=== PATIENT | female | born 1990 | race Caucasian/White ===

== ENCOUNTER 2017-11-04 21:45 | Emergency (ER) | payer MEDICAID, SELFPAY ==
[2017-11-04 21:50] VITALS: BP 140/90; PULSE 75; RESP 18; TEMP 36.1; O2SAT 99; BMI 30.4
[2017-11-04 21:58] VITALS: BP 140/90; PULSE 75; RESP 18; TEMP 36.1; O2SAT 99; BMI 30.4
--- NOTE | 2017-11-04 21:59 | PC.NURSE ---
Pt states R earlobe swelling and pain 5/10 x1 week has used warm compresses with no relief. States has had her earrings out for about a year and had similar episode last year used warm compresses, earlobe drained and pain resolved. R earlobe appears swollen with abscess.
[2017-11-04] MEDS: DOXYCYCLINE HYCLATE 100 MG TABLET PO (22:35)
[2017-11-04 22:57] VITALS: BP 112/69; PULSE 65; O2SAT 100
[2017-11-04 23:03] VITALS: BP 118/71; PULSE 72; RESP 18; O2SAT 99
--- NOTE | 2017-11-04 23:57 | ED_ITS ---
HPI - Ear Problem General Chief complaint: Ear Stated complaint: RT EARLOBE PAIN Time Seen by Provider: 11/04/17 21:47 Source: patient and family Mode of arrival: ambulatory Limitations: no limitations History of Present Illness HPI Narrative: Patient presents to the emergency department with a chief complaint of right earlobe pain for the past week. She complains of swelling, redness and pain and tried squeezing it, thinking it was another abscess but did not get any pus. She has some tenderness both in front of and behind the year and a mild headache. She denies fever or shaking chills. She has not worn earrings in many months. She had a similar episode months ago and had an abscess drained MD Complaint: ear pain Location: right ear Duration: constant Severity: mild Relieving factors: nothing Exacerbating factors: nothing Treatment prior to arrival: none Related Data Previous Rx's Medication Instructions Recorded prednisone 20 mg PO BID #10 tab 04/11/17 doxycycline hyclate 100 mg PO BID #20 tab 11/04/17 Allergies Allergy/AdvReac Type Severity Reaction Status Date / Time CILLINS Allergy Intermediate Uncoded 08/19/17 12:49 Review of Systems Review of Systems All systems reviewed & are unremarkable except as noted in HPI and below Constitutional Denies chills, Denies fever(s), Denies lethargy and Denies weakness Eyes Denies change in vision, Denies eye discharge, Denies irritation and Denies loss of vision ENT Ears, Nose, Mouth, and Throat: Denies change in voice, Denies neck pain and Denies sore throat Comments: Right ear pain Cardiovascular Denies chest pain, Denies irregular heart rhythm, Denies lightheadedness, Denies palpitations, Denies dyspnea, Denies dyspnea on exertion and Denies orthopnea Respiratory Denies cough, Denies dyspnea, Denies dyspnea on exertion and Denies wheezing Gastrointestinal Gastrointestinal: Denies abdominal pain, Denies change in bowel habits, Denies diarrhea, Denies nausea and Denies vomiting Genitourinary Denies hematuria, Denies flank pain, Denies urinary incontinence and Denies urinary urgency Musculoskeletal Denies neck pain Integumentary/Breasts Denies pruritus, Denies erythema, Denies rash and Denies wounds Neurologic Denies confusion, Denies loss of vision and Denies weakness Psychiatric Denies anxiety, Denies confusion, Denies depression, Denies homicidal ideation and Denies suicidal ideation Endocrine Denies palpitations Hematologic/Lymphatic Denies easy bruising Allergic/Immunologic Denies wheezing PFSH Social History Smoking Status: Former smoker Exam Narrative Exam Narrative: Pleasant 27-year-old female in no obvious distress Initial Vital Signs Initial Vital Signs: Vital Signs Temperature 97 F L 11/04/17 21:50 Pulse Rate 75 11/04/17 21:50 Respiratory Rate 18 11/04/17 21:50 Blood Pressure 140/90 H 11/04/17 21:50 Pulse Oximetry 99 11/04/17 21:50 Const General: cooperative and well developed Nutritional Appearance: well nourished Orientation: alert, awake, oriented x3 and not confused HENMT Ears: TM normal on the right, EAC's normal, periauricular adenopathy and other ( R earlobe red, swollen, tender. No fluctuance, no induration) Nose: external nose normal Mouth: oral mucosae normal Resp Effort & Inspection: normal respiratory effort, able to speak in complete sentences, no respiratory distress and no use of accessory muscles Auscultation: clear to auscultation bilaterally, no rales, no rhonchi and no wheezes GI Inspection: non-distended Palpation: soft, no hepatosplenomegaly, No guarding, No pulsatile mass and No tender Auscultation: normal bowel sounds Neuro General: alert, oriented x3, gait normal and no focal motor deficits Speech: speech normal Extrem General: full ROM, no clubbing, cyanosis or edema, no pedal edema and no calf tenderness Course Orders Ordered: Discontinued Medications Doxycycline Hyclate (Vibramycin) 100 mg PO NOW ONE Stop: 11/04/17 22:31 Last Admin: 11/04/17 22:35 Dose: 100 mg Vital Signs - 8 hr 11/04/17 21:50 11/04/17 21:58 11/04/17 22:57 Temperature 97 F L 97 F L Pulse Rate 75 75 65 Respiratory Rate 18 18 Blood Pressure 140/90 H 140/90 H Blood Pressure [Right Arm] 112/69 Pulse Oximetry 99 99 100 11/04/17 23:03 Temperature Pulse Rate 72 Respiratory Rate 18 Blood Pressure 118/71 Blood Pressure [Right Arm] Pulse Oximetry 99 Medical Decision Making MDM Narrative Medical decision making narrative: There is no fluctuance or induration, nor ? saleh ?. Patient refuses attempt at incision and drainage at this point time, this is reasonable to me. She will continue warm compresses and add antibiotics Discharge Plan Departure Patient Disposition: Home, Self-Care Clinical Impression: Abscess of earlobe Discharge Date/Time: 11/04/17 23:04 Interventions: ED Discharge Assessment Last Done: 11/04/17 23:03 Instructions: DI for Skin Abscess Activity Restrictions/Additional Instructions: *You have been diagnosed with [ right earlobe abscess ] *What to do: *Take medications as directed, her prescription has been electronically transmitted to [facility] and [place] at your request *Follow up with your primary care provider in 2-3 days *Return to ER if you should have ny new, worsening or concerning symptoms Prescriptions: New doxycycline hyclate 100 mg tablet 100 mg PO BID Qty: 20 RF: 0 No Action prednisone 20 MG tablet 20 mg PO BID Qty: 10 RF: 0
== END 2017-11-04 23:04 | disposition home or self-care (01) ==
PROVIDERS: Emergency Provider Emergency Medicine
DX: H60.01 Abscess of right external ear (principal)
CPT/HCPCS: 99282

== ENCOUNTER 2018-05-08 16:59 | Emergency (ER) | payer MEDICAID, SELFPAY ==
[2018-05-08 17:05] VITALS: BP 141/90; PULSE 99; RESP 19; TEMP 36.9; O2SAT 99; BMI 32.2
[2018-05-08 17:54] LABS: Influenza A and B by PCR Rapid Negative (Negative)
--- NOTE | 2018-05-08 18:07 | ED_ITS ---
HPI - URI/Sore Throat <Ashlyn Martins PA-C - Last Filed: 05/08/18 21:57> General Chief Complaint: Upper Respiratory Symptoms Stated Complaint: Cough and moucus for about a week Time Seen by Provider: 05/08/18 17:14 Source: patient Mode of arrival: ambulatory Limitations: no limitations History of Present Illness HPI Narrative: This 28-year-old female comes in due to 8 day history of respiratory symptoms. She traveled to [place] just prior to onset and thought this was due to the weather change, but now has been persistently ill. She states that this started with cough and some nasal congestion, and she has continued to have worsening cough, now with green and yellow sputum, last couple of days with a little bit of blood tinge in the sputum at times. She states that she has been coughing hard, and this can cause soreness in her chest , sometimes sore with breathing or cough. She states that she coughs so hard at times it hurts her low back and her legs can feel numb for a minute (she has a history of lumbar herniated disc, no new injury). She states that she does not feel short of breath or have wheeze. She had fever of 100 at home a couple of days ago, none today. She states that she is starting to feel achy. She states her throat is scratchy and sore from coughing, but not a severe sore throat. She denies earache, denies sinus pain, rash or other new complaints on exam aside from worsening fatigue. She denies possibility of , has had tubal ligation Related Data Previous Rx's Medication Instructions Recorded prednisone 20 mg PO BID #10 tab 04/11/17 doxycycline hyclate 100 mg PO BID #20 tab 11/04/17 codeine-guaifenesin 5 ml PO Q4H PRN #120 ml 05/08/18 Allergies Allergy/AdvReac Type Severity Reaction Status Date / Time CILLINS Allergy Intermediate Uncoded 08/19/17 12:49 Review of Systems <Ashlyn Martins PA-C - Last Filed: 05/08/18 21:57> Review of Systems All systems reviewed & are unremarkable except as noted in HPI and below Exam <RAJENDRA Leavitt Last Filed: 05/08/18 21:57> Narrative Exam Narrative: GENERAL APPEARANCE: Patient sitting comfortably, in no distress. HEAD: No sinus TTP. EYES: PERRL, EOMI. EARS: Normal auditory canals, TMS intact, scarred ORAL CAVITY: Normal oropharynx. THROAT: Mild erythema, no exudate, PND noted NECK/THYROID: Neck supple, full range of motion, few small anterior cervical nodes LUNGS: Clear to auscultation bilaterally, occasional wet cough on exam HEART: RRR without murmur, nl S1, S2, no S3 or S4. DERMATOLOGIC: No exanthem Initial Vital Signs Initial Vital Signs: Vital Signs Temperature 98.4 F 05/08/18 17:05 Pulse Rate 99 H 05/08/18 17:05 Respiratory Rate 19 05/08/18 17:05 Blood Pressure 141/90 H 05/08/18 17:05 Pulse Oximetry 99 05/08/18 17:05 <Eduardo Galindo DO - Last Filed: 05/09/18 04:28> Initial Vital Signs Initial Vital Signs: Vital Signs Temperature 98.4 F 05/08/18 17:05 Pulse Rate 99 H 05/08/18 17:05 Respiratory Rate 19 05/08/18 17:05 Blood Pressure 141/90 H 05/08/18 17:05 Pulse Oximetry 99 05/08/18 17:05 Course <Ashlyn Martins PA-C - Last Filed: 05/08/18 21:57> Orders Ordered: Discontinued Medications Ibuprofen (Advil) 800 mg PO NOW ONE Stop: 05/08/18 18:25 Last Admin: 05/08/18 18:30 Dose: 800 mg Vital Signs - 8 hr 05/08/18 17:05 05/08/18 18:43 05/08/18 18:45 Temperature 98.4 F 98.0 F Pulse Rate 99 H 79 Respiratory Rate 19 18 Blood Pressure 141/90 H Blood Pressure [Left Arm] 135/88 Pulse Oximetry 99 100 05/08/18 19:44 Temperature Pulse Rate 81 Respiratory Rate 18 Blood Pressure 131/80 Blood Pressure [Left Arm] Pulse Oximetry 99 <Eduardo Galindo DO - Last Filed: 05/09/18 04:28> Orders Ordered: Discontinued Medications Ibuprofen (Advil) 800 mg PO NOW ONE Stop: 05/08/18 18:25 Last Admin: 05/08/18 18:30 Dose: 800 mg Vital Signs - 8 hr 05/08/18 17:05 05/08/18 18:43 05/08/18 18:45 Temperature 98.4 F 98.0 F Pulse Rate 99 H 79 Respiratory Rate 19 18 Blood Pressure 141/90 H Blood Pressure [Left Arm] 135/88 Pulse Oximetry 99 100 05/08/18 19:44 Temperature Pulse Rate 81 Respiratory Rate 18 Blood Pressure 131/80 Blood Pressure [Left Arm] Pulse Oximetry 99 MDM - URI/Sore Throat <Ashlyn Martins PA-C - Last Filed: 05/08/18 21:57> Lab Data Lab Results 05/08/18 Range/Units 17:10 Influenza A & B (PCR) Negative (Negative) <Eduardo Galindo DO - Last Filed: 05/09/18 04:28> Lab Data Lab Results 05/08/18 Range/Units 17:10 Influenza A & B (PCR) Negative (Negative) Discharge Plan Departure Patient Disposition: Home Clinical Impression: URI (upper respiratory infection) Discharge Date/Time: 05/08/18 19:44 Interventions: ED Discharge Assessment Last Done: 05/08/18 19:44 Instructions: DI for Viral Upper Respiratory Infection -- Adult Activity Restrictions/Additional Instructions: Please return as we talked about if you have any acutely worsening symptoms. Otherwise, please continue ibuprofen, and you can also take the prescription cough syrup as needed to help thin the mucous and, cough (do not drive as it may make you sleepy). These symptoms are most likely caused by a virus and can take a couple of weeks to get better, but please see your PCP if you are not improving over the next week. Your test for flu and your chest x-ray for pneumonia were normal today. Prescriptions: New codeine-guaifenesin 10-100 mg/5 mL liquid 5 ml PO Q4H PRN (Reason: cough) Qty: 120 RF: 0 No Action prednisone 20 MG tablet 20 mg PO BID Qty: 10 RF: 0 doxycycline hyclate 100 mg tablet 100 mg PO BID Qty: 20 RF: 0 Referrals: Chris Carballo [Non-Staff] - <Eduardo Galindo DO - Last Filed: 05/09/18 04:28> Sign Out Provider Sign Out Attestation: I was immediately available in the department for consultation. Documentation has been reviewed. I agree with assessment and plan.
--- NOTE | 2018-05-08 18:23 | DI.RAD.S_ITS ---
PROCEDURE: XR CHEST 2V INDICATIONS: cough with purulent sputum, blood tinge TECHNIQUE: 2 views of the chest were acquired. COMPARISON: None. FINDINGS: Surgical changes and devices: None. Lungs and pleura: No pleural effusions or pneumothorax. Lungs are clear. Mediastinum: Mediastinal contours are normal. Heart size is normal. Bones and chest wall: No suspicious bony abnormalities. Soft tissues appear unremarkable. IMPRESSION: Normal for age, source of current symptoms is not seen. Dictated by: Manny Valentino M.D. on 05/08/2018 at 18:43 Approved by: Manny Valentino M.D. on 05/08/2018 at 18:44
[2018-05-08] MEDS: IBUPROFEN 400 MG TABLET 800 MG PO (18:30)
[2018-05-08 18:43] VITALS: BP 135/88; PULSE 79; RESP 18; O2SAT 100
[2018-05-08 18:45] VITALS: TEMP 36.7
[2018-05-08 19:44] VITALS: BP 131/80; PULSE 81; RESP 18; O2SAT 99
== END 2018-05-08 19:44 | disposition home or self-care (01) ==
PROVIDERS: Emergency Medicine; Emergency Provider Internal Medicine
DX: J06.9 Acute upper respiratory infection, unspecified (principal)
CPT/HCPCS: 71046; 87400; 99283; 99284

== ENCOUNTER 2020-01-06 20:37 | Emergency (ER) | payer OTHER, MEDICAID, SELFPAY ==
[2020-01-06 20:40] VITALS: BP 133/91; PULSE 80; RESP 18; TEMP 36.6; O2SAT 98; BMI 33.2
--- NOTE | 2020-01-06 21:12 | PC.NURSE ---
This [employer]PERATING ENGINEER assisted pt with changing into safety scrubs. Pt states that she has been through this process before and is aware of what is going to happen. is at bedside.
--- NOTE | 2020-01-06 21:32 | PC.NURSE ---
Steffanie Lehman on Pt 1:1 at 2130. Pt is calm and lying on gurney, Pt spouse is at bedside
[2020-01-06 21:33] LABS: Add Manual Diff / Slide Review NO; Basophils Absolute Auto 100 /uL (0-100); Basophils Percent Auto 0.6 % (0-2); Eosinophils Absolute Auto 100 /uL (0-450); Eosinophils Percent Auto 0.6 % (2-4); Hematocrit 42.8 % (36-46); Hemoglobin 13.9 g/dL (12.0-16.0); Lymphocytes Absolute Auto 1000 /uL (1100-4500); Lymphocytes Percent Auto 10.2 % (25-40); Mean Corpuscular HGB Conc 32.6 % (30-36); Mean Corpuscular Hemoglobin 29.1 PG (26-34); Mean Corpuscular Volume 89.3 fL (80-100); Monocytes Absolute Auto 700 /uL (0-900); Monocytes Percent Auto 6.8 % (3-14); Neutrophils Absolute Auto 8100 /uL (1500-7000); Neutrophils Percent Auto 81.8 % (50-75); Platelet Count 294 X10^3/uL (150-400); Red Blood Cell Count 4.79 X10^6/uL (4.0-5.2); Red Cell Distribution Width 13.7 % (11.6-14.8)
[2020-01-06 21:40] LABS: Alanine Aminotransferase 24 IU/L (<35); Albumin 4.6 g/dL (3.5-5.0); Albumin Globulin Ratio 1.2 (1.0-2.8); Alkaline Phosphatase 70 U/L (38-126); Aspartate Aminotransferase 25 IU/L (14-36); Bilirubin Total 1.1 mg/dL (0.2-1.3); Blood Urea Nitrogen 11 mg/dL (7-17); Calcium 9.3 mg/dL (8.4-10.2); Carbon Dioxide 26 mmol/L (22-32); Chloride 104 mmol/L (98-107); Estimated Glomerular Filt Rate > 60.0 mL/min (>60); Globulin 3.7 g/dL (1.7-4.1); Glucose 131 mg/dL (70-100); HEMOLYSIS < 15 (0-50); Lipase 26 U/L (23-300); Potassium 3.5 mmol/L (3.4-5.1); Sodium 138 mmol/L (137-145); Total Protein 8.3 g/dL (6.3-8.2)
--- NOTE | 2020-01-06 21:46 | PC.NURSE ---
Nurse collecting Covid swab, Pt is calm and cooperative
[2020-01-06 21:54] LABS: UR Morphine/Opiate cutoff 300 Negative (Negative); Ur Creatinine 100 (Normal); Ur Specific Gravity > 1.030 (Normal); Urine Amphetamines Negative (Negative); Urine Cocaine Negative (Negative); Urine MDMA Negative (Negative); Urine Methamphetamines Negative (Negative); Urine Phencyclidine Negative (Negative); Urine Tetrahydrocannabinol Positive (Negative); Urine pH 5.5 (Normal)
[2020-01-06 21:55] LABS: Urine Barbiturates Negative (Negative); Urine Benzodiazepines Negative (Negative); Urine Methadone Negative (Negative); Urine Oxycodone Negative (Negative); Urine Tricyclic Antidepressant Negative (Negative)
[2020-01-06 22:04] LABS: Acetaminophen < 10 ug/mL (10-30); Ethanol (ETOH) < 10 mg/dL; Salicylate < 1.0 mg/dL (<20)
--- NOTE | 2020-01-06 22:12 | PC.NURSE ---
Visitor in room with patient. Patient resting comfortably in bed. Does mention headache, requests tylenol. MD informed.
--- NOTE | 2020-01-06 22:17 | PC.NURSE ---
Dr is in the Rm speaking with the Pt, spouse is at bedside with Pt consent
[2020-01-06 22:21] LABS: Thyroid Stimulating Hormone 1.05 uIU/mL (0.47-4.68)
[2020-01-06] MEDS: ACETAMINOPHEN 325 MG TABLET 650 MG PO (22:23)
--- NOTE | 2020-01-06 22:23 | ED_ITS ---
HPI - Psych <Homero Esquivel DO - Last Filed: 01/07/20 19:22> General Chief Complaint: Psychiatric Symptoms Stated Complaint: mental health issues Time Seen by Provider: 01/06/20 20:52 Source: patient Mode of arrival: Ambulatory Limitations: no limitations History of Present Illness HPI Narrative: Patient is a 29-year-old female. Has a prior diagnosis of PTSD and bipolar disorder. Does see a mental health provider with the [facility]. States she is taking her prescribed medications as directed. Has had suicidal thoughts in the past. Has also had suicide attempts/gestures in the past. She has tried to overdose on medications and also tried to crash her car and also tried to cut herself. She also has had inpatient hospital stays in the past with the last reported inpatient stay approximately 2 years ago for suicidal ideation. She states that the symptoms that brought her in today started about 3 weeks ago when for an unexplained reason she ?ran away from home ?she states she was gone for several days. She states she ran away in order to try to hurt herself however a friend stopped her. Since that time she has had increasingly pervasive thoughts of killing herself until the point of the last 2 days when they have been constant thoughts. She states that her plan would be to wait until her goes to work and then going crash her car. She has not attempted to hurt herself in the past 3 weeks. Denies any alcohol in the past 24 hours. Smoked marijuana today prior to coming to the ER but no other drugs. She is here today voluntarily. She states that she did talk with her about the thoughts that she was having and after discussion with the she was convinced to come to the emergency department. She is here seeking voluntary admission to the hospital for her current mental health issues. Related Data Home Medications Medication Instructions Recorded Confirmed aripiprazole 10 mg PO DAILY 01/06/20 01/06/20 lamotrigine 50 mg PO DAILY 01/06/20 01/06/20 naproxen 500 mg PO BID PRN 01/06/20 01/06/20 trazodone 100 mg PO QPM 01/06/20 01/06/20 Allergies Allergy/AdvReac Type Severity Reaction Status Date / Time Penicillins Allergy Verified 01/06/20 20:40 Review of Systems <DO Charleen De Dios Last Filed: 01/07/20 19:22> Constitutional Constitutional: Denies fever(s) and Reports headache(s) ENT Ears, Nose, Mouth, and Throat: Reports headache(s) Cardiovascular Cardiovascular: Denies chest pain and Denies dyspnea Respiratory Respiratory: Denies dyspnea Gastrointestinal Gastrointestinal: Denies abdominal pain, Denies change in bowel habits and Denies nausea Genitourinary Genitourinary: Denies dysuria Genitourinary: Denies dysuria Musculoskeletal Musculoskeletal: Denies arthralgias and Denies myalgias Integumentary/Breasts Skin/Breast: Denies rash Neurologic Neurologic: Denies confusion and Reports headache(s) Psychiatric Psychiatric: Denies anxiety, Denies confusion, Reports depression, Reports hopelessness, Denies paranoia, Denies homicidal ideation and Reports suicidal ideation Hematologic/Lymphatic Hematologic/Lymphatic: Denies easy bleeding and Denies easy bruising Allergic/Immunologic Allergic/Immunologic: Denies urticaria Patient History <Homero Esquivel DO - Last Filed: 01/07/20 19:22> Medical History Bipolar disorder (Acute) Lumbar herniated disc (Chronic) PTSD (post-traumatic stress disorder) (Acute) Surgical History History of (Resolved) History of mandibular surgery (Resolved) History of tubal ligation (Resolved) Social History Smoking Status: Current every day smoker Smoking Status: Current every day smoker Substance Use Type: marijuana Exam <Homero Esquivel DO - Last Filed: 01/07/20 19:22> Initial Vital Signs Initial Vital Signs: Vital Signs Temperature 97.9 F 01/06/20 20:40 Pulse Rate 80 01/06/20 20:40 Respiratory Rate 18 01/06/20 20:40 Blood Pressure 133/91 H 01/06/20 20:40 Pulse Oximetry 98 01/06/20 20:40 Const General: cooperative and comfortable Limitations: mental status not altered [facility] Head: normal to inspection and normocephalic Ears: hearing grossly normal bilaterally Resp Effort & Inspection: normal respiratory effort Auscultation: clear to auscultation bilaterally Cardio Rate: regular rate Rhythm: regular rhythm GI Inspection: non-distended Skin Lesions: no lesions Rashes: no rashes Neuro General: patient alert, patient awake and patient oriented x3 Cognition: normal cognition Speech: speech normal Extrem General: normal to inspection and capillary refill normal Psych Appearance: grossly normal and well kempt Mental Status: mental status grossly normal Speech and Movement: speech and movement normal Mood: congruent mood Affect: sad Attitude: cooperative Thought Content: suicidality <Gloria Jang MD - Last Filed: 01/07/20 14:33> Initial Vital Signs Initial Vital Signs: Vital Signs Temperature 97.9 F 01/06/20 20:40 Pulse Rate 80 01/06/20 20:40 Respiratory Rate 18 01/06/20 20:40 Blood Pressure 133/91 H 01/06/20 20:40 Pulse Oximetry 98 01/06/20 20:40 Scores <Homero Esquivel DO - Last Filed: 01/07/20 19:22> GCS Richard coma scale eye opening: Spontaneous Richard coma scale verbal response: Orientated [place] coma scale motor response: Obey commands [place] coma scale total score: 15 Course <Homero Esquivel DO - Last Filed: 01/07/20 19:22> Orders Ordered: Discontinued Medications Acetaminophen (Tylenol) 650 mg PO NOW ONE Stop: 01/06/20 22:17 Last Admin: 01/06/20 22:23 Dose: 650 mg Documented by: GAEL Aripiprazole (Abilify) 5 mg PO NOW ONE Stop: 01/07/20 09:14 Last Admin: 01/07/20 09:23 Dose: 5 mg Documented by: JUAN Lamotrigine (Lamictal) 50 mg PO NOW ONE Stop: 01/07/20 09:15 Last Admin: 01/07/20 09:23 Dose: 50 mg Documented by: JUAN Vital Signs Vital signs: Vital Signs - 8 hr 01/07/20 14:48 Temperature 97.3 F L Pulse Rate 73 Respiratory Rate 18 Blood Pressure 140/81 Pulse Oximetry 100 <Gloria Jang MD - Last Filed: 01/07/20 14:33> Course Course Narrative: Patient has been admitted to [facility] psychiatric unit. Voluntary admission for suicidal ideation. S transport is being arranged. Orders Ordered: Discontinued Medications Acetaminophen (Tylenol) 650 mg PO NOW ONE Stop: 01/06/20 22:17 Last Admin: 01/06/20 22:23 Dose: 650 mg Documented by: GAEL Aripiprazole (Abilify) 5 mg PO NOW ONE Stop: 01/07/20 09:14 Last Admin: 01/07/20 09:23 Dose: 5 mg Documented by: JUAN Lamotrigine (Lamictal) 50 mg PO NOW ONE Stop: 01/07/20 09:15 Last Admin: 01/07/20 09:23 Dose: 50 mg Documented by: JUAN Vital Signs Vital signs: Vital Signs - 8 hr 01/07/20 14:48 Temperature 97.3 F L Pulse Rate 73 Respiratory Rate 18 Blood Pressure 140/81 Pulse Oximetry 100 MDM - Psych <Homero Esquivel DO - Last Filed: 01/07/20 19:22> Lab Data Attestation: I reviewed the patient's lab results. Result diagrams: 01/06/20 21:20 01/06/20 21:20 Labs: Lab Results 01/06/20 01/06/20 01/06/20 Range/Units 21:20 21:20 21:20 WBC 10.0 (4.5-11.0) X10^3/uL RBC 4.79 (4.0-5.2) X10^6/uL Hgb 13.9 (12.0-16.0) g/dL Hct 42.8 (36-46) % MCV 89.3 (80-100) fL MCH 29.1 (26-34) PG MCHC 32.6 (30-36) % RDW 13.7 (11.6-14.8) % Plt Count 294 (150-400) X10^3/uL Neut % (Auto) 81.8 H (50-75) % Lymph % (Auto) 10.2 L (25-40) % [place] % (Auto) 6.8 (3-14) % Eos % (Auto) 0.6 L (2-4) % Baso % (Auto) 0.6 (0-2) % Neut # (Auto) 8100 H (6072-8889) /uL Lymph # (Auto) 1000 L (3393-6638) /uL [place] # (Auto) 700 (0-900) /uL Eos # (Auto) 100 (0-450) /uL Baso # (Auto) 100 (0-100) /uL Sodium 138 (137-145) mmol/L Potassium 3.5 (3.4-5.1) mmol/L Chloride 104 (98-107) mmol/L Carbon Dioxide 26 (22-32) mmol/L BUN 11 (7-17) mg/dL Creatinine 0.61 (0.52-1.04) mg/dL Estimated GFR > 60.0 (>60) mL/min BUN/Creatinine Ratio 18.0 (6-22) Glucose 131 H (70-100) mg/dL Calcium 9.3 (8.4-10.2) mg/dL Magnesium (1.6-2.3) mg/dL Total Bilirubin 1.1 (0.2-1.3) mg/dL AST 25 (14-36) IU/L ALT 24 (<35) IU/L Alkaline Phosphatase 70 (38-126) U/L Total Protein 8.3 H (6.3-8.2) g/dL Albumin 4.6 (3.5-5.0) g/dL Globulin 3.7 (1.7-4.1) g/dL Albumin/Globulin Ratio 1.2 (1.0-2.8) Lipase 26 (23-300) U/L TSH (0.47-4.68) uIU/mL Urine Test Cancelled Salicylates (<20) mg/dL U Opiates 300ng/mL cut (Negative) Ur Oxycodone Screen (Negative) Urine Methadone Screen (Negative) Acetaminophen < 10 L (10-30) ug/mL Ur Barbiturates Screen (Negative) U Tricyclic Antidepress (Negative) Ur Phencyclidine Scrn (Negative) Ur Amphetamines Screen (Negative) U Methamphetamines Scrn (Negative) Ur MDMA Scrn (Ecstasy) (Negative) U Benzodiazepines Scrn (Negative) Urine Cocaine Screen (Negative) U Marijuana (THC) Screen (Negative) Ethyl Alcohol < 10 ( - 10) mg/dL COVID-19 PCR (Negative) 01/06/20 01/06/20 01/06/20 Range/Units 21:20 21:20 21:20 WBC (4.5-11.0) X10^3/uL RBC (4.0-5.2) X10^6/uL Hgb (12.0-16.0) g/dL Hct (36-46) % MCV (80-100) fL MCH (26-34) PG MCHC (30-36) % RDW (11.6-14.8) % Plt Count (150-400) X10^3/uL Neut % (Auto) (50-75) % Lymph % (Auto) (25-40) % [place] % (Auto) (3-14) % Eos % (Auto) (2-4) % Baso % (Auto) (0-2) % Neut # (Auto) (8262-2787) /uL Lymph # (Auto) (0667-8553) /uL [place] # (Auto) (0-900) /uL Eos # (Auto) (0-450) /uL Baso # (Auto) (0-100) /uL Sodium (137-145) mmol/L Potassium (3.4-5.1) mmol/L Chloride (98-107) mmol/L Carbon Dioxide (22-32) mmol/L BUN (7-17) mg/dL Creatinine (0.52-1.04) mg/dL Estimated GFR (>60) mL/min BUN/Creatinine Ratio (6-22) Glucose (70-100) mg/dL Calcium (8.4-10.2) mg/dL Magnesium (1.6-2.3) mg/dL Total Bilirubin (0.2-1.3) mg/dL AST (14-36) IU/L ALT (<35) IU/L Alkaline Phosphatase (38-126) U/L Total Protein (6.3-8.2) g/dL Albumin (3.5-5.0) g/dL Globulin (1.7-4.1) g/dL Albumin/Globulin Ratio (1.0-2.8) Lipase (23-300) U/L TSH 1.05 (0.47-4.68) uIU/mL Urine Test Salicylates < 1.0 (<20) mg/dL U Opiates 300ng/mL cut Negative (Negative) Ur Oxycodone Screen Negative (Negative) Urine Methadone Screen Negative (Negative) Acetaminophen (10-30) ug/mL Ur Barbiturates Screen Negative (Negative) U Tricyclic Antidepress Negative (Negative) Ur Phencyclidine Scrn Negative (Negative) Ur Amphetamines Screen Negative (Negative) U Methamphetamines Scrn Negative (Negative) Ur MDMA Scrn (Ecstasy) Negative (Negative) U Benzodiazepines Scrn Negative (Negative) Urine Cocaine Screen Negative (Negative) U Marijuana (THC) Screen Positive H (Negative) Ethyl Alcohol ( - 10) mg/dL COVID-19 PCR (Negative) 01/06/20 01/06/20 Range/Units 21:20 21:44 WBC (4.5-11.0) X10^3/uL RBC (4.0-5.2) X10^6/uL Hgb (12.0-16.0) g/dL Hct (36-46) % MCV (80-100) fL MCH (26-34) PG MCHC (30-36) % RDW (11.6-14.8) % Plt Count (150-400) X10^3/uL Neut % (Auto) (50-75) % Lymph % (Auto) (25-40) % [place] % (Auto) (3-14) % Eos % (Auto) (2-4) % Baso % (Auto) (0-2) % Neut # (Auto) (3452-3432) /uL Lymph # (Auto) (7449-3639) /uL [place] # (Auto) (0-900) /uL Eos # (Auto) (0-450) /uL Baso # (Auto) (0-100) /uL Sodium (137-145) mmol/L Potassium (3.4-5.1) mmol/L Chloride (98-107) mmol/L Carbon Dioxide (22-32) mmol/L BUN (7-17) mg/dL Creatinine (0.52-1.04) mg/dL Estimated GFR (>60) mL/min BUN/Creatinine Ratio (6-22) Glucose (70-100) mg/dL Calcium (8.4-10.2) mg/dL Magnesium 2.2 (1.6-2.3) mg/dL Total Bilirubin (0.2-1.3) mg/dL AST (14-36) IU/L ALT (<35) IU/L Alkaline Phosphatase (38-126) U/L Total Protein (6.3-8.2) g/dL Albumin (3.5-5.0) g/dL Globulin (1.7-4.1) g/dL Albumin/Globulin Ratio (1.0-2.8) Lipase (23-300) U/L TSH (0.47-4.68) uIU/mL Urine Test Salicylates (<20) mg/dL U Opiates 300ng/mL cut (Negative) Ur Oxycodone Screen (Negative) Urine Methadone Screen (Negative) Acetaminophen (10-30) ug/mL Ur Barbiturates Screen (Negative) U Tricyclic Antidepress (Negative) Ur Phencyclidine Scrn (Negative) Ur Amphetamines Screen (Negative) U Methamphetamines Scrn (Negative) Ur MDMA Scrn (Ecstasy) (Negative) U Benzodiazepines Scrn (Negative) Urine Cocaine Screen (Negative) U Marijuana (THC) Screen (Negative) Ethyl Alcohol ( - 10) mg/dL COVID-19 PCR Negative (Negative) Point of Care Testing Test Results Negative Urine Dip Bedside Urine Glucose Negative Bedside Urine Bilirubin - Negative Bedside Urine Ketone - Negative Urine Specific [place] 1.030 Bedside Urine Occult Blood - Negative Bedside Urine pH 6.0 Bedside Urine Protein - Negative Bedside Urine Urobilinogen - Negative Bedside Urine Nitrite - Negative Bedside Urine Leukocytes - Negative Esterase ECG Data Attestation: I personally reviewed and interpreted this ECG as follows: Prior ECG tracings: not available for review Interpretation: Sinus bradycardia otherwise unremarkable MDM Narrative Medical decision making narrative: Patient with current suicidal ideation with plan and prior suicidal attempts/gestures here for voluntary admission for her mental health issues. Patient is calm. Alert and oriented. Is voluntary. Medically cleared. Is here with her . Is willing to stay in the emergency department until placement is found. I feel my opinion that admission to the hospital be warranted given her prior history and her current admitted concern about safety at home. Will attempt to find placement. This patient does not require magnesium and an EKG for medical clearance however was requested by receiving facility. Patient does not have lice or scabies. <Gloria Jang MD - Last Filed: 01/07/20 14:33> Lab Data Labs: Lab Results 01/06/20 01/06/20 01/06/20 Range/Units 21:20 21:20 21:20 WBC 10.0 (4.5-11.0) X10^3/uL RBC 4.79 (4.0-5.2) X10^6/uL Hgb 13.9 (12.0-16.0) g/dL Hct 42.8 (36-46) % MCV 89.3 (80-100) fL MCH 29.1 (26-34) PG MCHC 32.6 (30-36) % RDW 13.7 (11.6-14.8) % Plt Count 294 (150-400) X10^3/uL Neut % (Auto) 81.8 H (50-75) % Lymph % (Auto) 10.2 L (25-40) % [place] % (Auto) 6.8 (3-14) % Eos % (Auto) 0.6 L (2-4) % Baso % (Auto) 0.6 (0-2) % Neut # (Auto) 8100 H (7753-9026) /uL Lymph # (Auto) 1000 L (8069-6761) /uL [place] # (Auto) 700 (0-900) /uL Eos # (Auto) 100 (0-450) /uL Baso # (Auto) 100 (0-100) /uL Sodium 138 (137-145) mmol/L Potassium 3.5 (3.4-5.1) mmol/L Chloride 104 (98-107) mmol/L Carbon Dioxide 26 (22-32) mmol/L BUN 11 (7-17) mg/dL Creatinine 0.61 (0.52-1.04) mg/dL Estimated GFR > 60.0 (>60) mL/min BUN/Creatinine Ratio 18.0 (6-22) Glucose 131 H (70-100) mg/dL Calcium 9.3 (8.4-10.2) mg/dL Magnesium (1.6-2.3) mg/dL Total Bilirubin 1.1 (0.2-1.3) mg/dL AST 25 (14-36) IU/L ALT 24 (<35) IU/L Alkaline Phosphatase 70 (38-126) U/L Total Protein 8.3 H (6.3-8.2) g/dL Albumin 4.6 (3.5-5.0) g/dL Globulin 3.7 (1.7-4.1) g/dL Albumin/Globulin Ratio 1.2 (1.0-2.8) Lipase 26 (23-300) U/L TSH (0.47-4.68) uIU/mL Urine Test Cancelled Salicylates (<20) mg/dL U Opiates 300ng/mL cut (Negative) Ur Oxycodone Screen (Negative) Urine Methadone Screen (Negative) Acetaminophen < 10 L (10-30) ug/mL Ur Barbiturates Screen (Negative) U Tricyclic Antidepress (Negative) Ur Phencyclidine Scrn (Negative) Ur Amphetamines Screen (Negative) U Methamphetamines Scrn (Negative) Ur MDMA Scrn (Ecstasy) (Negative) U Benzodiazepines Scrn (Negative) Urine Cocaine Screen (Negative) U Marijuana (THC) Screen (Negative) Ethyl Alcohol < 10 ( - 10) mg/dL COVID-19 PCR (Negative) 01/06/20 01/06/20 01/06/20 Range/Units 21:20 21:20 21:20 WBC (4.5-11.0) X10^3/uL RBC (4.0-5.2) X10^6/uL Hgb (12.0-16.0) g/dL Hct (36-46) % MCV (80-100) fL MCH (26-34) PG MCHC (30-36) % RDW (11.6-14.8) % Plt Count (150-400) X10^3/uL Neut % (Auto) (50-75) % Lymph % (Auto) (25-40) % [place] % (Auto) (3-14) % Eos % (Auto) (2-4) % Baso % (Auto) (0-2) % Neut # (Auto) (0188-8857) /uL Lymph # (Auto) (8549-9185) /uL [place] # (Auto) (0-900) /uL Eos # (Auto) (0-450) /uL Baso # (Auto) (0-100) /uL Sodium (137-145) mmol/L Potassium (3.4-5.1) mmol/L Chloride (98-107) mmol/L Carbon Dioxide (22-32) mmol/L BUN (7-17) mg/dL Creatinine (0.52-1.04) mg/dL Estimated GFR (>60) mL/min BUN/Creatinine Ratio (6-22) Glucose (70-100) mg/dL Calcium (8.4-10.2) mg/dL Magnesium (1.6-2.3) mg/dL Total Bilirubin (0.2-1.3) mg/dL AST (14-36) IU/L ALT (<35) IU/L Alkaline Phosphatase (38-126) U/L Total Protein (6.3-8.2) g/dL Albumin (3.5-5.0) g/dL Globulin (1.7-4.1) g/dL Albumin/Globulin Ratio (1.0-2.8) Lipase (23-300) U/L TSH 1.05 (0.47-4.68) uIU/mL Urine Test Salicylates < 1.0 (<20) mg/dL U Opiates 300ng/mL cut Negative (Negative) Ur Oxycodone Screen Negative (Negative) Urine Methadone Screen Negative (Negative) Acetaminophen (10-30) ug/mL Ur Barbiturates Screen Negative (Negative) U Tricyclic Antidepress Negative (Negative) Ur Phencyclidine Scrn Negative (Negative) Ur Amphetamines Screen Negative (Negative) U Methamphetamines Scrn Negative (Negative) Ur MDMA Scrn (Ecstasy) Negative (Negative) U Benzodiazepines Scrn Negative (Negative) Urine Cocaine Screen Negative (Negative) U Marijuana (THC) Screen Positive H (Negative) Ethyl Alcohol ( - 10) mg/dL COVID-19 PCR (Negative) 01/06/20 01/06/20 Range/Units 21:20 21:44 WBC (4.5-11.0) X10^3/uL RBC (4.0-5.2) X10^6/uL Hgb (12.0-16.0) g/dL Hct (36-46) % MCV (80-100) fL MCH (26-34) PG MCHC (30-36) % RDW (11.6-14.8) % Plt Count (150-400) X10^3/uL Neut % (Auto) (50-75) % Lymph % (Auto) (25-40) % [place] % (Auto) (3-14) % Eos % (Auto) (2-4) % Baso % (Auto) (0-2) % Neut # (Auto) (2720-8997) /uL Lymph # (Auto) (8795-4391) /uL [place] # (Auto) (0-900) /uL Eos # (Auto) (0-450) /uL Baso # (Auto) (0-100) /uL Sodium (137-145) mmol/L Potassium (3.4-5.1) mmol/L Chloride (98-107) mmol/L Carbon Dioxide (22-32) mmol/L BUN (7-17) mg/dL Creatinine (0.52-1.04) mg/dL Estimated GFR (>60) mL/min BUN/Creatinine Ratio (6-22) Glucose (70-100) mg/dL Calcium (8.4-10.2) mg/dL Magnesium 2.2 (1.6-2.3) mg/dL Total Bilirubin (0.2-1.3) mg/dL AST (14-36) IU/L ALT (<35) IU/L Alkaline Phosphatase (38-126) U/L Total Protein (6.3-8.2) g/dL Albumin (3.5-5.0) g/dL Globulin (1.7-4.1) g/dL Albumin/Globulin Ratio (1.0-2.8) Lipase (23-300) U/L TSH (0.47-4.68) uIU/mL Urine Test Salicylates (<20) mg/dL U Opiates 300ng/mL cut (Negative) Ur Oxycodone Screen (Negative) Urine Methadone Screen (Negative) Acetaminophen (10-30) ug/mL Ur Barbiturates Screen (Negative) U Tricyclic Antidepress (Negative) Ur Phencyclidine Scrn (Negative) Ur Amphetamines Screen (Negative) U Methamphetamines Scrn (Negative) Ur MDMA Scrn (Ecstasy) (Negative) U Benzodiazepines Scrn (Negative) Urine Cocaine Screen (Negative) U Marijuana (THC) Screen (Negative) Ethyl Alcohol ( - 10) mg/dL COVID-19 PCR Negative (Negative) Point of Care Testing Test Results Negative Urine Dip Bedside Urine Glucose Negative Bedside Urine Bilirubin - Negative Bedside Urine Ketone - Negative Urine Specific [place] 1.030 Bedside Urine Occult Blood - Negative Bedside Urine pH 6.0 Bedside Urine Protein - Negative Bedside Urine Urobilinogen - Negative Bedside Urine Nitrite - Negative Bedside Urine Leukocytes - Negative Esterase Discharge Plan Departure Patient Disposition: Xfer Psychiatric Hosp Clinical Impression: Suicidal ideation Discharge Date/Time: 01/07/20 14:57 Activity Restrictions/Additional Instructions: Transfer to [facility] psych, voluntary.
[2020-01-06 22:43] LABS: COVID19 -Nasal RAPID Negative (Negative)
[2020-01-07 01:43] VITALS: BP 131/80; PULSE 66; RESP 18; TEMP 36.8; O2SAT 99
--- NOTE | 2020-01-07 01:50 | PC.NURSE ---
Patient medically cleared earlier and given permission to look for patient placement. [facility] stated facilities with rooms were: [facility] in [facility], [facility] in [facility], [facility], [facility], and [facility]. [facility], [facility] denied patient of placement until patient was seen by director of social services/DCR. Information packet was sent to [facility] at approximately 23:30 with no response at this time. [facility] in [facility] stated they would discuss patient admission with their MD after receiving CBC, CMP, urine dip, UDS, pregnany test, COVID results, EKG, magnesium level, current vitals, and note from ER MD stating patient was checked for lice and scabies. Labs currently being processed. While obtaining patient's vitals and updating her on plan of care, patient states i had a bad experience at [facility] and don't want to go back there. Patient denies needing anything further at this time. remains asleep in recliner in room.
[2020-01-07 01:51] LABS: Magnesium 2.2 mg/dL (1.6-2.3)
--- NOTE | 2020-01-07 03:05 | PC.NURSE ---
[facility] called and stated patient was denied placement at their facility due to patient having diagnosis of bipolar disorder. The MD of facility believes that patient should have private room and should not have shared room due to her diagnosis.
--- NOTE | 2020-01-07 05:35 | PC.NURSE ---
[facility] to there. [facility] states if she changes her mind to call them back.
[2020-01-07 05:52] VITALS: BP 150/84; PULSE 80; RESP 18; TEMP 36.4; O2SAT 100
--- NOTE | 2020-01-07 07:36 | PC.NURSE ---
safe handoff from night nurse Xiomara. Patient sleeping on stretcher. at bedside. Patient safety instruction police officer at doorway.
--- NOTE | 2020-01-07 08:12 | PC.NURSE ---
Pt is asleep. is asleep in chair next to patient. Sitter at bedside in line of sight. Waiting for ENTERTAINMENT USHER evaluation.
--- NOTE | 2020-01-07 08:45 | PC.NURSE ---
Pt is sitting quietly on the stretcher eating breakfast and using her cellphone. Her is resting in the recliner at bedside. 1:1 sitter in line of sight at doorway.
--- NOTE | 2020-01-07 09:03 | PC.NURSE ---
SALINA Beatty in the room with patient and .
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
[2020-01-07] MEDS: ARIPiprazole 10 MG TABLET 5 MG PO (09:23)
[2020-01-07] MEDS: lamoTRIgine 25 MG CHEW TABLET 50 MG PO (09:23)
--- NOTE | 2020-01-07 10:17 | PC.NURSE ---
The pt's is back in room after running to the store to get several caffeinated beverages for the pt. The door is left wide open for visibility, the pt is agreeable to this.
--- NOTE | 2020-01-07 10:25 | PC.NURSE ---
Pt reports feeling clam, denies SI at this time. Pt states she hasn't slept like that in a long time. Pt declines elimination or hygenic needs at this time. Pt updated on plan of care and is amenable. Pt requesting a release of information to [facility]. still at bedside. Sitter at bedside within line of sight.
--- NOTE | 2020-01-07 12:46 | PC.NURSE ---
Pt calm and quite, sitting using phone. Pt has visitor.
--- NOTE | 2020-01-07 13:21 | PC.NURSE ---
Pt given lunch with [place] heard. Sitter at bedside. Waiting placement
--- NOTE | 2020-01-07 13:46 | PC.NURSE ---
SALINA Jaci just left the room after updating patient and family member. The patient is sitting quietly on the stretcher, writing in a journal, at bedside.
[2020-01-07 14:48] VITALS: BP 140/81; PULSE 73; RESP 18; TEMP 36.3; O2SAT 100
== END 2020-01-07 14:57 ==
PROVIDERS: Emergency Medicine; Emergency Provider Emergency Medicine
DX: R45.851 Suicidal ideations (principal); R51 Headache; F43.10 Post-traumatic stress disorder, unspecified
CPT/HCPCS: 36415; 80053; 80305; 80320; 80329; 81003; 81025; 83690; 83735; 84443; 85025; 87635; 93005; 99284; G0480

== ENCOUNTER 2022-02-12 05:23 | Emergency (ER) | payer OTHER, MEDICAID, SELFPAY ==
[2022-02-12 05:32] VITALS: BP 147/73; PULSE 103; RESP 20; TEMP 36.8; O2SAT 97; BMI 35.9
--- NOTE | 2022-02-12 05:39 | PC.NURSE ---
Patient in hospital gown with belongings bagged and taken for safety. Patient verbalizes understanding.
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
[2022-02-12 06:17] LABS: Add Manual Diff / Slide Review NO; Basophils Absolute Auto 0 /uL (0-100); Basophils Percent Auto 0.3 % (0-2); Eosinophils Absolute Auto 0 /uL (0-450); Hematocrit 43.2 % (36-46); Hemoglobin 14.2 g/dL (12.0-16.0); Lymphocytes Absolute Auto 500 /uL (1100-4500); Lymphocytes Percent Auto 3.9 % (25-40); Mean Corpuscular HGB Conc 32.9 % (30-36); Mean Corpuscular Hemoglobin 29.1 PG (26-34); Mean Corpuscular Volume 88.6 fL (80-100); Monocytes Absolute Auto 500 /uL (0-900); Monocytes Percent Auto 3.7 % (3-14); Neutrophils Absolute Auto 12800 /uL (1500-7000); Neutrophils Percent Auto 92.1 % (50-75); Platelet Count 302 X10^3/uL (150-400); Red Blood Cell Count 4.88 X10^6/uL (4.0-5.2); Red Cell Distribution Width 13.5 % (11.6-14.8); White Blood Cell Count 13.9 X10^3/uL (4.5-11.0)
[2022-02-12 06:28] LABS: Bacteria Urine None Seen; Culture Indicated Urine Cult Not Indicated; Mucus Urine 1+ (Negative); RBC Urine 1-5/HPF (0-5/HPF); Squamous Epithelial Cell Urine 1-5 /HPF (0-5/HPF); WBC Urine 0-1/HPF (0-5/HPF)
[2022-02-12 06:32] LABS: Alanine Aminotransferase 22 IU/L (<35); Albumin 4.8 g/dL (3.5-5.0); Albumin Globulin Ratio 1.3 (1.0-2.8); Alkaline Phosphatase 77 U/L (38-126); Aspartate Aminotransferase 21 IU/L (14-36); BUN Creatinine Ratio 17.5 (6-22); Bilirubin Total 0.6 mg/dL (0.2-1.3); Blood Urea Nitrogen 11 mg/dL (7-17); Calcium 9.3 mg/dL (8.4-10.2); Carbon Dioxide 26 mmol/L (22-32); Chloride 105 mmol/L (98-107); Estimated Glomerular Filt Rate > 60 mL/min (>60); Ethanol (ETOH) < 10 mg/dL; Globulin 3.8 g/dL (1.7-4.1); Glucose 139 mg/dL (70-100); HEMOLYSIS < 15 (0-50); Potassium 3.7 mmol/L (3.4-5.1); Sodium 141 mmol/L (137-145); Total Protein 8.6 g/dL (6.3-8.2)
[2022-02-12 06:37] LABS: UR Morphine/Opiate cutoff 300 Negative (Negative); Ur Creatinine Normal (Normal); Ur Specific Gravity Normal (Normal); Urine Amphetamines Negative (Negative); Urine Barbiturates Negative (Negative); Urine Benzodiazepines Negative (Negative); Urine Cocaine Negative (Negative); Urine MDMA Negative (Negative); Urine Methadone Negative (Negative); Urine Methamphetamines Negative (Negative); Urine Oxycodone Negative (Negative); Urine Phencyclidine Negative (Negative); Urine Tetrahydrocannabinol Positive (Negative); Urine Tricyclic Antidepressant Negative (Negative); Urine pH Normal (Normal)
[2022-02-12 07:02] LABS: TSH w/ Reflex to FT4 1.02 uIU/mL (0.47-4.68)
[2022-02-12 08:00] LABS: Pregnancy Test Urine Negative (Negative)
[2022-02-12] MEDS: METFORMIN HCL 500 MG TABLET PO (09:06)
[2022-02-12] MEDS: ARIPiprazole 10 MG TABLET 20 MG PO (09:06)
[2022-02-12] MEDS: lamoTRIgine 100 MG TABLET 150 MG PO (09:08)
[2022-02-12 14:53] VITALS: BP 130/79; PULSE 94; RESP 18; O2SAT 98
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
== END 2022-02-12 14:54 | disposition home or self-care (01) ==
PROVIDERS: Emergency Medicine; Emergency Provider Emergency Medicine
DX: R45.851 Suicidal ideations (principal); F31.9 Bipolar disorder, unspecified
CPT/HCPCS: 80053; 80305; 80320; 81003; 81015; 81025; 84443; 85025; 87086; 99284

== ENCOUNTER 2024-09-27 15:11 | Emergency (ER) | payer OTHER, SELFPAY ==
[2024-09-27] VITALS (7 sets, daily range): BP systolic 138–155; BP diastolic 74–93; PULSE 79–90; RESP 14–16; TEMP 36.9–37; O2SAT 96–98; BMI 36.5
--- NOTE | 2024-09-27 15:19 | DI.RAD.S_ITS ---
PROCEDURE: XR CHEST 1V INDICATIONS: Chest Pain TECHNIQUE: One view of the chest was acquired. COMPARISON: [facility], CR, XR CHEST 2V, 05/08/2018, 18:37. FINDINGS AND IMPRESSION: Low lung volumes. No dense airspace disease or pleural effusion on this single view study. Normal heart size. Unremarkable osseous structures. Dictated by: Wicho Clark M.D. on 09/27/2024 at 15:42 Approved by: Wicho Clark M.D. on 09/27/2024 at 15:42
--- NOTE | 2024-09-27 15:20 | EKG_ITS ---
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
[2024-09-27] MEDS: ASPIRIN 81 MG CHEW TAB 324 MG PO (15:30)
[2024-09-27 15:41] LABS: Add Manual Diff / Slide Review NO; Basophils Absolute Auto 0 /uL (0-100); Basophils Percent Auto 0.5 % (0-2); Eosinophils Absolute Auto 500 /uL (0-450); Eosinophils Percent Auto 7.6 % (2-4); Hematocrit 37.1 % (36-46); Hemoglobin 12.2 g/dL (12.0-16.0); Lymphocytes Absolute Auto 900 /uL (1100-4500); Lymphocytes Percent Auto 12.6 % (25-40); Mean Corpuscular HGB Conc 32.9 % (30-36); Mean Corpuscular Hemoglobin 30.4 PG (26-34); Mean Corpuscular Volume 92.4 fL (80-100); Monocytes Absolute Auto 800 /uL (0-900); Monocytes Percent Auto 11.5 % (3-14); Neutrophils Absolute Auto 4800 /uL (1500-7000); Neutrophils Percent Auto 67.8 % (50-75); Platelet Count 279 X10^3/uL (150-400); Red Blood Cell Count 4.01 X10^6/uL (4.0-5.2); Red Cell Distribution Width 14.2 % (11.6-14.8); White Blood Cell Count 7.1 X10^3/uL (4.5-11.0)
[2024-09-27 15:50] LABS: INR 1.1 (0.9-1.3); Prothrombin Time 12.5 SECONDS (9.4-12.5)
[2024-09-27 15:52] LABS: PTT Partial Thromboplastin Tim 40 SECONDS (25.1-36.5)
[2024-09-27 16:02] LABS: Lactate (Lactic Acid) 1.1 mmol/L (0.7-2.1)
[2024-09-27 16:06] LABS: Alanine Aminotransferase 20 IU/L (<35); Albumin 4.6 g/dL (3.5-5.0); Albumin Globulin Ratio 1.3 (1.0-2.8); Alkaline Phosphatase 71 U/L (38-126); Aspartate Aminotransferase 28 IU/L (14-36); Bilirubin Total 0.7 mg/dL (0.2-1.3); Blood Urea Nitrogen 6 mg/dL (7-17); Calcium 8.9 mg/dL (8.4-10.2); Carbon Dioxide 22 mmol/L (22-32); Chloride 106 mmol/L (98-107); Creatine Kinase 58 U/L (30-135); Estimated Glomerular Filt Rate > 60 mL/min (>60); Globulin 3.5 g/dL (1.7-4.1); Glucose 109 mg/dL (70-99); HEMOLYSIS < 15 (0-50); Lipase 321 U/L (23-300); Magnesium 2.1 mg/dL (1.6-2.3); Potassium 3.8 mmol/L (3.4-5.1); Sodium 138 mmol/L (137-145); Total Protein 8.1 g/dL (6.3-8.2)
[2024-09-27 16:17] LABS: NT-proBNP (BNP-Adult 18+) 110 pg/mL (<125); Troponin I < 0.012 ng/mL (0.01-0.034)
--- NOTE | 2024-09-27 17:24 | ED.CHESTPAIN ---
HPI - Chest Pain General Chief Complaint: Chest Pain Stated Complaint: Severe Cough/chest pain x2days Time Seen by Provider: 09/27/24 17:11 Source: patient, RN notes reviewed and old records reviewed Mode of arrival: Ambulatory Limitations: no limitations History of Present Illness HPI narrative: 34-year-old female history of bipolar who presents with complaint of 2 days of cough with green productive sputum, patient states she was developed some chest discomfort substernally and a little bit off to the sides. Denies any shortness of breath but states she was had a pretty harsh cough. She states she has felt warm but is unclear if she was had any fevers. She was had some nasal congestion. Notes she had sinus surgeries on August 22 had improvement immediately after but has felt congested since. Describes mild pain states she was not tender over her sinuses. She denies any nausea or vomiting. No bowel movements are issues with diarrhea. No new swelling in extremities. Patient states she was bipolar states she takes her medications regularly denies any issues or concerns with these. Reports allergy to penicillin and other sounds including amoxicillin and describes anaphylaxis. No tobacco, alcohol or recreational drugs. Related Data Home Medications Medication Instructions Recorded Confirmed aripiprazole 10 mg tablet 10 mg PO DAILY 01/06/20 01/06/20 lamotrigine 25 mg tablet 50 mg PO DAILY 01/06/20 01/06/20 naproxen 500 mg tablet 500 mg PO BID PRN Pain (Scale 01/06/20 01/06/20 Score 4-6) trazodone 100 mg tablet 100 mg PO QPM 01/06/20 01/06/20 Previous Rx's Medication Instructions Recorded azithromycin 250 mg tablet See Rx Instructions PO .COMPLEX #6 09/27/24 tabs Allergies Allergy/AdvReac Type Severity Reaction Status Date / Time Penicillins Allergy Verified 09/27/24 15:21 Review of Systems Review of Systems ROS Unobtainable: All systems reviewed & are unremarkable except as noted in HPI and below Patient History Medical History (Updated 09/27/24 @ 17:43 by Archana Chavis DO) Bipolar disorder PTSD (post-traumatic stress disorder) Lumbar herniated disc Surgical History History of History of tubal ligation History of mandibular surgery Social History Smoking Status: Unknown if ever smoked Smoking Status: Unknown if ever smoked tobacco type: cigarettes alcohol intake frequency: a few times a week Exam Narrative Exam Narrative: GEN: well nourished, well appearing few, alert and oriented x 3, patient appears to be in mild distress. Patient feels very warm to the touch HEENT: Atraumatic, pupils are equal round reactive to light, extraocular movements are intact, nares shows some mild clear rhinorrhea, TMs are clear with no fluid, there is no conjunctival pallor. Throat is clear without any exudates, erythema, tonsillar enlargement or uvular deviation, nontender over the maxillary sinuses. HEART: Regular rate and rhythm without murmur, clicks, rubs. No edema bilateral lower extremities. LUNGS:Lungs good breath sounds bilaterally, no wheezes, patient has a mild crackles in the left, no tachypnea, chest moves symmetrically ABD:bowel sounds normal, soft, non-tender, no guarding, rebound, rigidity, no masses noted, no hepatosplenomegaly MSCL: full range of motion, normal gait NEURO:CN 2-12 intact, sensation normal Initial Vital Signs Initial Vital Signs: Vital Signs Temperature 98.6 F 09/27/24 15:11 Pulse Rate 90 09/27/24 15:11 Respiratory Rate 14 09/27/24 15:11 Blood Pressure 152/79 H 09/27/24 15:11 Pulse Oximetry 98 09/27/24 15:11 Oxygen Delivery Method Room Air 09/27/24 15:11 Course Orders Ordered: ED Orders 09/27/24 15:19 XR chest 1V Stat EKG-12 Lead Stat RT Consult Eval and Treat NOW 09/27/24 15:25 Complete Blood Count AUTO DIFF Stat Comprehensive Metabolic Panel Stat Lactate (Lactic Acid) Stat Lipase Stat Magnesium Stat NT-proBNP (BNP-Adult 18+) Stat PTT Partial Thromboplastin Jeronimo Stat Prothrombin Time INR Stat Troponin & CK Cardiac Panel Stat Discontinued Medications Aspirin (Aspirin 81 Mg Chew Tab) 324 mg PO NOW ONE Stop: 09/27/24 15:20 Last Admin: 09/27/24 15:30 Dose: 324 mg Documented By: SB Vital Signs Vital signs: Vital Signs - 8 hr 09/27/24 15:11 09/27/24 15:17 09/27/24 15:30 Temperature 98.6 F Pulse Rate 90 89 86 Respiratory Rate 14 Blood Pressure 152/79 H 152/74 H 140/78 Pulse Oximetry 98 98 98 Oxygen Delivery Method Room Air 09/27/24 16:00 09/27/24 16:30 09/27/24 17:00 Temperature Pulse Rate 79 80 79 Respiratory Rate Blood Pressure 155/85 H 138/93 H 148/82 H Pulse Oximetry 96 96 96 Oxygen Delivery Method 09/27/24 17:30 Temperature 98.5 F Pulse Rate 81 Respiratory Rate 16 Blood Pressure 140/91 H Pulse Oximetry 96 Oxygen Delivery Method Room Air MDM - Chest Pain Lab Data 09/27/24 15:25 09/27/24 15:25 Labs: Lab Results 09/27/24 Range/Units 15:25 WBC 7.1 (4.5-11.0) X10^3/uL RBC 4.01 (4.0-5.2) X10^6/uL Hgb 12.2 (12.0-16.0) g/dL Hct 37.1 (36-46) % MCV 92.4 (80-100) fL MCH 30.4 (26-34) PG MCHC 32.9 (30-36) % RDW 14.2 (11.6-14.8) % Plt Count 279 (150-400) X10^3/uL Neut % (Auto) 67.8 (50-75) % Lymph % (Auto) 12.6 L (25-40) % [place] % (Auto) 11.5 (3-14) % Eos % (Auto) 7.6 H (2-4) % Baso % (Auto) 0.5 (0-2) % Neut # (Auto) 4800 (1442-4089) /uL Lymph # (Auto) 900 L (4939-6764) /uL [place] # (Auto) 800 (0-900) /uL Eos # (Auto) 500 H (0-450) /uL Baso # (Auto) 0 (0-100) /uL PT 12.5 (9.4-12.5) SECONDS INR 1.1 (0.9-1.3) APTT 40 H (25.1-36.5) SECONDS Sodium 138 (137-145) mmol/L Potassium 3.8 (3.4-5.1) mmol/L Chloride 106 (98-107) mmol/L Carbon Dioxide 22 (22-32) mmol/L BUN 6 L (7-17) mg/dL Creatinine 0.60 (0.52-1.04) mg/dL Estimated GFR > 60 (>60) mL/min BUN/Creatinine Ratio 10.0 (6-22) Glucose 109 H (70-99) mg/dL Lactate 1.1 (0.7-2.1) mmol/L Calcium 8.9 (8.4-10.2) mg/dL Magnesium 2.1 (1.6-2.3) mg/dL Total Bilirubin 0.7 (0.2-1.3) mg/dL AST 28 (14-36) IU/L ALT 20 (<35) IU/L Alkaline Phosphatase 71 (38-126) U/L Total Creatine Kinase 58 (30-135) U/L Troponin I < 0.012 (0.01-0.034) ng/mL NT-Pro-B Natriuret Pep 110 (<125) pg/mL Total Protein 8.1 (6.3-8.2) g/dL Albumin 4.6 (3.5-5.0) g/dL Globulin 3.5 (1.7-4.1) g/dL Albumin/Globulin Ratio 1.3 (1.0-2.8) Lipase 321 H (23-300) U/L ECG Data Attestation: I personally reviewed and interpreted this ECG as follows: Prior ECG tracings: available for review Interpretation: Sinus rhythm rate 81 CO 150 QRS is 78 QTC of [address] elevation. Prior from 01/07/2020 no acute changes appreciated MDM Narrative Medical decision making narrative: EKG shows sinus rhythm, no changes from December of 2019. Labs show normal hemoglobin, white count and platelets, INR is 1.1 electrolytes are appropriate BUN 6 creatinine 0.6, glucose is 109 lactate 2.1 LFTs are negative, troponins less than 0.012 with a BNP of 110. Lipase is 321. Chest x-ray shows no acute change. 34-year-old female with complaint of chest pain and productive cough for 2 days with green productive sputum. Symptoms seem most consistent with upper respiratory infection but patient has been having green productive sputum does have little bit of mild crackles in the left, chest x-ray is negative for acute change patient notes some chest discomfort but seems most consistent with infection do not think she was having a cardiac issue at this time no changes consistent with myocarditis. We will cover with an oral antibiotic for clinical pneumonia. Patient does note recent sinus surgery about 4 weeks ago but it was nontender over her sinuses. Discharge Plan Departure Patient Disposition: Home Clinical Impression: Pneumonia Instructions: DI for Pneumonia -- Adult Activity Restrictions/Additional Instructions: Please follow up as needed. Treat any fevers or muscle aches with acetaminophen up to a 1000 mg every 6 hours and/or ibuprofen up to 600 mg every 6 hours. Your chest x-ray today is clear. You have little bit of crackles in the left side please take oral antibiotics until completed for suspected pneumonia. Prescription sent to [facility] in [place]. Please return if having any other new or concerning changes, increasing or new chest pain, increasing shortness of breath, coughing up blood, lightheadedness or passing out, new swelling of your extremities or other new or concerning changes. Prescriptions: New azithromycin 250 mg tablet See Rx Instructions .ROUTE .COMPLEX Qty: 6 0RF Rx Instructions: For 250 mg dose pack: take 500 mg today (day 1), then 250 mg for 4 days (days 2-5) No Action lamotrigine 25 mg tablet 50 mg PO DAILY trazodone 100 mg tablet 100 mg PO QPM aripiprazole 10 mg tablet 10 mg PO DAILY naproxen 500 mg Tablet 500 mg PO BID PRN (Reason: Pain (Scale Score 4-6)) Referrals: Miscellaneous,Doctor, MD [Primary Care Provider] - Stand Alone Forms: Patient Portal/API/Survey
== END 2024-09-27 17:53 | disposition home or self-care (01) ==
PROVIDERS: Emergency Provider Emergency Medicine
DX: J18.9 Pneumonia, unspecified organism (principal)
CPT/HCPCS: 36415; 71045; 80053; 82550; 83605; 83690; 83735; 83880; 84484; 85025; 85610; 85730; 93005; 99284